=== PATIENT | female | born 2000 | race Caucasian/White ===

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

== ENCOUNTER 2020-05-18 16:41 | Emergency (ER) | payer MEDICAID, OTHER ==
--- NOTE | 2020-05-18 17:34 | EDM.PDOC ---
<Yojana Ko - Last Filed: 05/18/20 19:06> ED HPI GENERAL MEDICAL PROBLEM - General Chief Complaint: Abdominal Pain Stated Complaint: ABDOMINAL PAIN Time Seen by Provider: 05/18/20 17:29 Source of Information: Reports: Patient, Family, RN, RN Notes Reviewed History Limitations: Reports: No Limitations - History of Present Illness INITIAL COMMENTS - FREE TEXT/NARRATIVE: Pt here with mother in ER regarding ongoing issue with no BM in 14 days. Pt was seen at [facility] Saturday and CT angio done. Pt indicates showed constipation and they sent her home to drink Myralax until BM. Pt still has not had a BM and has taken 15 doses of Myralax. Now pt is vomiting, chills, night sweats, and has nausea. Pain is 7/10 to all 4 quads of abd. Pt taking Tylenol and Ibuprofen and does not help. Onset: Gradual Onset Date: 05/04/20 (14 days ) Duration: Week(s):, Chronic (14 days ), Getting Worse Location: Reports: Abdomen Quality: Reports: Pressure Severity: Moderate Improves with: Reports: None Worsens with: Reports: None Treatments FISHER WEIR: Reports: Acetaminophen, NSAIDS Abdominal Pain Score (Numeric/FACES): 7 - Related Data Allergies Allergy/AdvReac Type Severity Reaction Status Date / Time No Known Allergies Allergy Verified 06/30/19 00:42 Home Meds: Home Meds Cetirizine [ZyrTEC] 10 mg PO DAILY 06/30/19 [History] Ibuprofen [Motrin Ib] 400 - 600 mg PO TID PRN 06/30/19 [History] Ondansetron [Zofran ODT] 4 mg PO Q6H PRN 06/30/19 [History] Rizatriptan [Maxalt BLOCKER POLISHING] 10 mg PO ASDIRECTED PRN 06/30/19 [History] Spironolactone [Aldactone] 50 - 100 mg PO BID 06/30/19 [History] diphenhydrAMINE [Benadryl] 100 mg PO DAILY PRN 06/30/19 [History] Docusate Sodium [Colace] 100 mg PO BID PRN 05/18/20 [History] Eszopiclone 1 mg PO BEDTIME 05/18/20 [History] Indomethacin 50 mg PO TID 05/18/20 [History] buPROPion HCL [Bupropion Xl] 150 mg PO DAILY 05/18/20 [History] polyethylene glycoL 3350 [MiraLAX] 17 gm PO DAILY 05/18/20 [History] Past Medical History HEENT History: Reports: Other (See Below) Other HEENT History: optical migraines Cardiovascular History: Reports: Arrhythmia Respiratory History: Reports: Asthma Gastrointestinal History: Reports: GERD Genitourinary History: Reports: Renal Calculus Musculoskeletal History: Reports: Fracture Neurological History: Reports: Concussion, Migraines Social & Family History - Tobacco Use Smoking Status *Q: Never Smoker - Caffeine Use Caffeine Use: Reports: Coffee, Energy Drinks, Soda - Recreational Drug Use Recreational Drug Use: No ED ROS GENERAL - Review of Systems Review Of Systems: See Below Constitutional: Reports: No Symptoms HEENT: Reports: No Symptoms Respiratory: Reports: No Symptoms Cardiovascular: Reports: No Symptoms Endocrine: Reports: No Symptoms GI/Abdominal: Reports: Nausea, Vomiting : Reports: No Symptoms Musculoskeletal: Reports: No Symptoms Skin: Reports: No Symptoms Neurological: Reports: No Symptoms Psychiatric: Reports: No Symptoms Hematologic/Lymphatic: Reports: No Symptoms Immunologic: Reports: No Symptoms ED EXAM, GI/ABD - Physical Exam Exam: See Below Exam Limited By: No Limitations General Appearance: Alert, WD/WN, No Apparent Distress Head: Normocephalic Neck: Normal Inspection Respiratory/Chest: No Respiratory Distress Cardiovascular: Normal Peripheral Pulses, Regular Rate, Rhythm, No Murmur GI/Abdominal Exam: Normal Bowel Sounds, Tender, Other (tender in all 4 quadrants. No stool for 14 days) (Female) Exam: Deferred Rectal (Female) Exam: Deferred Neurological: Alert, Oriented, CN II-XII Intact Psychiatric: Normal Affect, Normal Mood Skin Exam: Warm, Dry Course - Re-Assessments/Exams Free Text/Narrative Re-Assessment/Exam: 05/18/20 18:05 Examined pt BERNADETTE no stool in rectal vault 05/18/20 19:01 Mineral enema and soap suds enema not measurable amount of BM. Will advise to by large Myralax and 2 qt Gatorades and drink to cause BM. Departure - Departure Time of Disposition: 19:08 Disposition: Home, Self-Care 01 Condition: Good Clinical Impression: Constipation - Discharge Information Instructions: Constipation, Adult, [id number] Referrals: Melba Aldrich MD [Primary Care Provider] - Forms: ED Department Discharge Additional Instructions: Please purchase a 238 gm bottle of Myralax and 2 quart gatorades or apple juice and drink. This should promote a BM. See the printed paperwork with discharge instructions. Please seek medical care if no relief of symptoms Sepsis Event Note (ED) - Evaluation Sepsis Screening Result: No Definite Risk - Assessment/Plan Plan: Please purchase a 238 gm bottle of Myralax and 2 quart gatorades or apple juice and drink. This should promote a BM. See the printed paperwork with discharge instructions. Please seek medical care if no relief of symptoms. <Gerry Billings D - Last Filed: 05/20/20 07:50> Course - Vital Signs Last Recorded V/S: Last Vital Signs Temp 97.2 F 05/18/20 17:12 Pulse 88 05/18/20 17:12 Resp 13 05/18/20 17:12 BP 127/78 05/18/20 17:12 Pulse Ox 99 05/18/20 17:12 - Orders/Labs/Meds Meds: Medications Discontinued Medications Generic Name Dose Route Start Last Admin Trade Name Freq PRN Reason Stop Dose Admin Mineral Oil 133 ml 05/18/20 18:02 05/18/20 18:18 Mineral Oil RECTAL 05/18/20 18:03 Not Given ONETIME ONE Mineral Oil 133 ml 05/18/20 18:14 05/18/20 18:17 Mineral Oil RECTAL 05/18/20 18:15 133 ml ONETIME ONE Administration - Re-Assessments/Exams Free Text/Narrative Re-Assessment/Exam: 05/20/20 07:48 Patient arrives with concerns of constipation. Initial evaluation and history done by nurse practitioner student, this was repeated by myself with the addition of a rectal exam which was completely normal, there was no stool present and no impaction. She was tender to the exam but there were no masses. I also reviewed her records from [facility] including her CT scan. I reviewed the chart in its entirety and agree with the disposition and plan. Departure - Departure Time of Disposition: 19:38 Attestation - Student - Attestation Statement Attestation Statement: I personally performed or re-performed the physical examination and medical decision making. I have verified all student documentation or findings, including history, physical exam and/or medical decision making.
== END 2020-05-18 19:39 | disposition home or self-care (01) ==
LOC: JP.ED 16:41
DX: K59.00 Constipation, unspecified (principal); J45.909 Unspecified asthma, uncomplicated; Z79.899 Other long term (current) drug therapy
CPT/HCPCS: 99283; A9270

== ENCOUNTER 2020-07-21 16:40 | Emergency (ER) | payer OTHER, MEDICAID ==
--- NOTE | 2020-07-21 17:16 | EDM.PDOCBH ---
<Clarke,Jane - Last Filed: 07/21/20 18:08> ED HPI GENERAL MEDICAL PROBLEM - General Chief Complaint: Behavioral/Psych Stated Complaint: EVAL Time Seen by Provider: 07/21/20 17:27 - Related Data Allergies Allergy/AdvReac Type Severity Reaction Status Date / Time No Known Allergies Allergy Verified 07/21/20 17:00 Home Meds: Home Meds Cetirizine [ZyrTEC] 10 mg PO DAILY 06/30/19 [History] Ibuprofen [Motrin Ib] 400 - 600 mg PO TID PRN 06/30/19 [History] Ondansetron [Zofran ODT] 4 mg PO Q6H PRN 06/30/19 [History] Rizatriptan [Maxalt TAR DISTRIBUTOR OPERATOR] 10 mg PO ASDIRECTED PRN 06/30/19 [History] Spironolactone [Aldactone] 50 - 100 mg PO BID 06/30/19 [History] diphenhydrAMINE [Benadryl] 100 mg PO DAILY PRN 06/30/19 [History] Docusate Sodium [Colace] 100 mg PO BID PRN 05/18/20 [History] Eszopiclone 1 mg PO BEDTIME 05/18/20 [History] Indomethacin 50 mg PO TID 05/18/20 [History] buPROPion HCL [Bupropion Xl] 150 mg PO DAILY 05/18/20 [History] polyethylene glycoL 3350 [MiraLAX] 17 gm PO DAILY 05/18/20 [History] Galcanezumab-Gnlm [Emgality] 120 mg SQ ASDIRECTED 07/21/20 [History] Verapamil HCl [Verapamil ER] 180 mg PO DAILY 07/21/20 [History] Departure - Departure Disposition: Refer to Observation Clinical Impression: Suicidal ideation - Discharge Information Instructions: Persistent Depressive Disorder, Adult, Suicidal Feelings: How to Help Yourself Referrals: Melba Aldrich MD [Primary Care Provider] - Forms: ED Department Discharge Care Plan Goals: Pt has been accepted at [facility] for in patient help with suicidal ideation. <Yojana Ko - Last Filed: 07/21/20 18:11> ED HPI GENERAL MEDICAL PROBLEM - General Source of Information: Reports: Patient, RN, RN Notes Reviewed - History of Present Illness INITIAL COMMENTS - FREE TEXT/NARRATIVE: Pt is here in ER for clearance for inpatient behavioral health. Pt was at therapist today and was urged to come in and get inpatient placement due to chronic suicidal ideation. Pt does verbalize a plan and desire to commit suicide. Pt is calm, quiet, little to no eye contact and tearful. Past Medical History HEENT History: Reports: Impaired Vision, Other (See Below) Other HEENT History: optical migraines Cardiovascular History: Reports: Arrhythmia Respiratory History: Reports: Asthma Gastrointestinal History: Reports: GERD Genitourinary History: Reports: Renal Calculus Musculoskeletal History: Reports: Fracture Neurological History: Reports: Concussion, Migraines Psychiatric History: Reports: Anxiety, Depression, Panic Attack, Suicide Attempt, Suicidal Ideation Endocrine/Metabolic History: Reports: Obesity/BMI 30+ - Infectious Disease History Infectious Disease History: Reports: None - Past Surgical History Head Surgeries/Procedures: Reports: None HEENT Surgical History: Reports: None Cardiovascular Surgical History: Reports: None GI Surgical History: Reports: None Female Surgical History: Reports: None Endocrine Surgical History: Reports: None Neurological Surgical History: Reports: None Musculoskeletal Surgical History: Reports: None Dermatological Surgical History: Reports: None Social & Family History - Tobacco Use Smoking Status *Q: Current Some Day Smoker Years of Tobacco use: 3 Packs/Tins Daily: 0.1 Used Tobacco, but Quit: No Second Hand Smoke Exposure: No - Caffeine Use Caffeine Use: Reports: None - Recreational Drug Use Recreational Drug Use: Yes Drug Use in Last 12 Months: Yes Recreational Drug Type: Reports: Marijuana/Hashish Recreational Drug Use Frequency: Rarely ED ROS GENERAL - Review of Systems Review Of Systems: See Below Constitutional: Reports: No Symptoms HEENT: Reports: No Symptoms Respiratory: Reports: No Symptoms Cardiovascular: Reports: No Symptoms Endocrine: Reports: No Symptoms GI/Abdominal: Reports: No Symptoms : Reports: No Symptoms Musculoskeletal: Reports: No Symptoms Skin: Reports: No Symptoms Neurological: Reports: No Symptoms Psychiatric: Reports: Depression, Mood Lability, Suicidal Ideation (Pt verbalized a plan and positive affirmation ) Hematologic/Lymphatic: Reports: No Symptoms Immunologic: Reports: No Symptoms ED EXAM, BEHAVIORAL HEALTH - Physical Exam Exam: See Below Exam Limited By: No Limitations General Appearance: Alert, WD/WN Head: Normocephalic Neck: Normal Inspection Respiratory/Chest: No Respiratory Distress Cardiovascular: Normal Peripheral Pulses, Regular Rate, Rhythm (Female) Exam: Deferred Rectal (Female) Exam: Deferred Extremities: Normal Inspection Neurological: Alert Psychiatric: Alert, Oriented, Flat Affect, Tearful, Poor Eye Contact, Suicidal Plan, Suicidal Thoughts Skin Exam: Normal color COURSE, BEHAVIORAL HEALTH COMP - Course Vital Signs: Last Vital Signs Temp 36.2 C 07/21/20 17:04 Pulse 99 07/21/20 17:04 Resp 16 07/21/20 17:04 BP 129/78 07/21/20 17:04 Pulse Ox 100 07/21/20 17:04 Orders, Labs, Meds: Laboratory Tests 07/21/20 07/21/20 07/21/20 Range/Units 17:25 17:25 17:32 WBC 8.1 (4.5-11.0) K/uL RBC 4.41 (3.30-5.50) M/uL Hgb 12.7 (12.0-15.0) g/dL Hct 40.2 (36.0-48.0) % MCV 91 (80-98) fL MCH 29 (27-31) pg MCHC 32 (32-36) % Plt Count 342 (150-400) K/uL Neut % (Auto) 75 H (36-66) % Lymph % (Auto) 20 L (24-44) % [place] % (Auto) 4 (2-6) % Eos % (Auto) 1 L (2-4) % Baso % (Auto) 0 (0-1) % Sodium (140-148) mmol/L Potassium (3.6-5.2) mmol/L Chloride (100-108) mmol/L Carbon Dioxide (21-32) mmol/L Anion Gap (5.0-14.0) mmol/L BUN (7-18) mg/dL Creatinine (0.6-1.0) mg/dL Est Cr Clr Drug Dosing mL/min Estimated GFR (MDRD) (>60) Glucose (74-106) mg/dL Calcium (8.5-10.1) mg/dL Total Bilirubin (0.2-1.0) mg/dL AST (15-37) U/L ALT (12-78) U/L Alkaline Phosphatase (46-116) U/L Total Protein (6.4-8.2) g/dL Albumin (3.4-5.0) g/dL Globulin (2.3-3.5) g/dL Albumin/Globulin Ratio (1.2-2.2) Urine Color Yellow (YELLOW) Urine Appearance Cloudy A (CLEAR) Urine pH 6.0 (5.0-8.0) Ur Specific [place] 1.020 (1.008-1.030) Urine Protein Negative (NEGATIVE) mg/dL Urine Glucose (UA) Negative (NEGATIVE) mg/dL Urine Ketones Negative (NEGATIVE) mg/dL Urine Occult Blood Moderate H (NEGATIVE) Urine Nitrite Negative (NEGATIVE) Urine Bilirubin Negative (NEGATIVE) Urine Urobilinogen 0.2 (0.2-1.0) EU/dL Ur Leukocyte Esterase Negative (NEGATIVE) Urine RBC 5-10 H (0-5) Urine WBC 0-5 (0-5) Ur Epithelial Cells Moderate Amorphous Sediment Few Urine Bacteria Moderate Urine Mucus Not seen Urine Other Urine Opiates Screen Negative (NEGATIVE) Ur Oxycodone Screen Negative (NEGATIVE) Urine Methadone Screen Negative (NEGATIVE) Ur Propoxyphene Screen Negative (NEGATIVE) Ur Barbiturates Screen Negative (NEGATIVE) Ur Tricyclics Screen Negative (NEGATIVE) Ur Phencyclidine Scrn Negative (NEGATIVE) Ur Amphetamine Screen Negative (NEGATIVE) U Methamphetamines Scrn Negative (NEGATIVE) Urine MDMA Screen Negative (NEGATIVE) U Benzodiazepines Scrn Negative (NEGATIVE) U Cocaine Metab Screen Negative (NEGATIVE) U Marijuana (THC) Screen Presumptive positive H (NEGATIVE) Ethyl Alcohol mg/dL 07/21/20 07/21/20 Range/Units 17:32 17:32 WBC (4.5-11.0) K/uL RBC (3.30-5.50) M/uL Hgb (12.0-15.0) g/dL Hct (36.0-48.0) % MCV (80-98) fL MCH (27-31) pg MCHC (32-36) % Plt Count (150-400) K/uL Neut % (Auto) (36-66) % Lymph % (Auto) (24-44) % [place] % (Auto) (2-6) % Eos % (Auto) (2-4) % Baso % (Auto) (0-1) % Sodium 138 L (140-148) mmol/L Potassium 3.7 (3.6-5.2) mmol/L Chloride 101 (100-108) mmol/L Carbon Dioxide 30 (21-32) mmol/L Anion Gap 10.7 (5.0-14.0) mmol/L BUN 11 (7-18) mg/dL Creatinine 1.1 H (0.6-1.0) mg/dL Est Cr Clr Drug Dosing 65.06 mL/min Estimated GFR (MDRD) > 60 (>60) Glucose 105 (74-106) mg/dL Calcium 9.2 (8.5-10.1) mg/dL Total Bilirubin 0.4 (0.2-1.0) mg/dL AST 10 L (15-37) U/L ALT 21 (12-78) U/L Alkaline Phosphatase 83 (46-116) U/L Total Protein 7.3 (6.4-8.2) g/dL Albumin 3.8 (3.4-5.0) g/dL Globulin 3.5 (2.3-3.5) g/dL Albumin/Globulin Ratio 1.1 L (1.2-2.2) Urine Color (YELLOW) Urine Appearance (CLEAR) Urine pH (5.0-8.0) Ur Specific [place] (1.008-1.030) Urine Protein (NEGATIVE) mg/dL Urine Glucose (UA) (NEGATIVE) mg/dL Urine Ketones (NEGATIVE) mg/dL Urine Occult Blood (NEGATIVE) Urine Nitrite (NEGATIVE) Urine Bilirubin (NEGATIVE) Urine Urobilinogen (0.2-1.0) EU/dL Ur Leukocyte Esterase (NEGATIVE) Urine RBC (0-5) Urine WBC (0-5) Ur Epithelial Cells Amorphous Sediment Urine Bacteria Urine Mucus Urine Other Urine Opiates Screen (NEGATIVE) Ur Oxycodone Screen (NEGATIVE) Urine Methadone Screen (NEGATIVE) Ur Propoxyphene Screen (NEGATIVE) Ur Barbiturates Screen (NEGATIVE) Ur Tricyclics Screen (NEGATIVE) Ur Phencyclidine Scrn (NEGATIVE) Ur Amphetamine Screen (NEGATIVE) U Methamphetamines Scrn (NEGATIVE) Urine MDMA Screen (NEGATIVE) U Benzodiazepines Scrn (NEGATIVE) U Cocaine Metab Screen (NEGATIVE) U Marijuana (THC) Screen (NEGATIVE) Ethyl Alcohol < 3 mg/dL Departure - Departure Time of Disposition: 18:10 Condition: Good, Fair - Discharge Information *PRESCRIPTION DRUG MONITORING PROGRAM REVIEWED*: Not Applicable *COPY OF PRESCRIPTION DRUG MONITORING REPORT IN PATIENT REE: Not Applicable Sepsis Event Note (ED) - Evaluation Sepsis Screening Result: No Definite Risk - Focused Exam Vital Signs: Vital Signs Temp Pulse Resp BP Pulse Ox 07/21/20 17:04 36.2 C 99 16 129/78 100 07/21/20 16:58 36.2 C 99 16 129/78 100 - Problem List Review Problem List Initiated/Reviewed/Updated: Yes - Assessment/Plan Plan: Pt has been accepted at [facility] for in patient help with suicidal ideation. Pt best friend here for transport.
== END 2020-07-21 21:24 ==
LOC: JP.ED 16:40
DX: R45.851 Suicidal ideations (principal); J45.909 Unspecified asthma, uncomplicated; E66.9 Obesity, unspecified; Z68.30 Body mass index [BMI] 30.0-30.9, adult; F17.210 Nicotine dependence, cigarettes, uncomplicated; Z79.899 Other long term (current) drug therapy; Z20.828 Contact with and (suspected) exposure to other viral communicable diseases
CPT/HCPCS: 36415; 80053; 80305-QW; 80307; 81001; 85025; 99284; 99285; U0002

== ENCOUNTER 2022-05-03 13:39 | Emergency (ER) | payer OTHER ==
[2022-05-03] MEDS ORDERED: Sodium Chloride 0.9% 10 ML Syringe FLUSH PRN (15:23)
[2022-05-03] MEDS ORDERED: Ondansetron 4 MG/2 ML SDV IVPUSH ONE (15:24)
[2022-05-03] MEDS ORDERED: Lactated Ringers 1,000 ML IV SCH (15:30)
[2022-05-03 16:04] LABS: ESTIMATED GFR 73 mL/min (>60)
[2022-05-03] MEDS ORDERED: Lidocaine 4% Top Soln 50 ML Bottle TOP ONE (17:41)
[2022-05-03] MEDS ORDERED: Ketorolac 30 MG/ML SDV IVPUSH ONE (17:41)
== END 2022-05-03 18:45 | disposition home or self-care (01) ==
LOC: JP.ED 13:39
DX: K52.9 Noninfective gastroenteritis and colitis, unspecified (principal); E66.9 Obesity, unspecified; Z68.30 Body mass index [BMI] 30.0-30.9, adult; Z91.018 Allergy to other foods; Z79.899 Other long term (current) drug therapy; Z87.891 Personal history of nicotine dependence; Z20.822 Contact with and (suspected) exposure to COVID-19
CPT/HCPCS: 36415; 80053; 81001; 83605; 83690; 84703; 85025; 87635; 96361; 96374; 96375; 99284; A9270; J1885; J2405; J7120; 99283; U0002